=== PATIENT | female | born 1990 | race Caucasian/White ===

== ENCOUNTER 2016-11-05 22:12 | Emergency (ER) | payer MEDICAID ==
[2016-11-05 23:57] VITALS: BP 138/75
== END 2016-11-05 23:57 | disposition home or self-care (01) ==
LOC: ED 22:12
DX: S93.402A Sprain of unspecified ligament of left ankle, initial encounter (principal); W22.8XXA Striking against or struck by other objects, initial encounter; Y93.89 Activity, other specified; Y92.89 Other specified places as the place of occurrence of the external cause; Y99.8 Other external cause status

== ENCOUNTER 2016-11-21 21:44 | Emergency (ER) | payer MEDICAID ==
[2016-11-21 22:35] VITALS: BP 139/87
== END 2016-11-21 22:35 | disposition home or self-care (01) ==
LOC: ED 21:44
DX: J04.0 Acute laryngitis (principal)

== ENCOUNTER 2017-10-26 10:10 | Emergency (ER) | payer MEDICAID ==
[~2017-10-26] VITALS: Ht 170.2 cm; Wt 142.4 kg
[2017-10-26 10:22] VITALS: Ht 170.2 cm; Wt 142.4 kg
[2017-10-26 11:21] LABS: BASOPHIL % 0.3 % (0-2); PLATELET COUNT 239 x10^3mcL (130-400); RED CELL DISTRIBUTION WIDTH 13.6 % (11.5-14.5)
[2017-10-26 11:50] LABS: CALCIUM 8.7 mg/dL (8.5-10.1); CARBON DIOXIDE 23.1 mmol/L (21-32); CHLORIDE SERUM 104 mmol/L (98-107); CREATININE SERUM 0.7 mg/dL (0.6-1.0); GFR1 > 60 mL/min; GLUCOSE SERUM 113 mg/dL (74-106); POTASSIUM SERUM 3.4 mmol/L (3.5-5.1); SODIUM SERUM 138 mmol/L (136-145)
[2017-10-26 11:55] LABS: ALKALINE PHOSPHATASE 59 U/L (46-116); ALT/SGPT 59 U/L (14-59); AST/SGOT 60 U/L (15-37); BILIRUBIN TOTAL 0.79 mg/dL (0.20-1.00); LIPASE 84 IU/L (73-393); TOTAL PROTEIN, SERUM 7.5 g/dL (6.4-8.2)
[2017-10-26 12:17] LABS: ALBUMIN 3.3 g/dL (3.4-5.0)
[2017-10-26 14:45] VITALS: BP 129/85
== END 2017-10-26 14:45 | disposition home or self-care (01) ==
LOC: ED 10:10
PROVIDERS: Emergency Medicine
DX: N20.0 Calculus of kidney (principal); D36.9 Benign neoplasm, unspecified site
CPT/HCPCS: J1885; J2405; J7030

== ENCOUNTER 2018-07-02 15:39 | Emergency (ER) | payer OTHER ==
[~2018-07-02] VITALS: Ht 170.2 cm; Wt 142.4 kg
[2018-07-02 15:52] VITALS: Ht 170.2 cm; Wt 142.4 kg
[2018-07-02 19:24] LABS: BASOPHIL % 0.3 % (0-2); PLATELET COUNT 264 x10^3mcL (130-400); RED CELL DISTRIBUTION WIDTH 13.9 % (11.5-14.5)
[2018-07-02 19:27] LABS: CALCIUM 9.1 mg/dL (8.5-10.1); CARBON DIOXIDE 27.6 mmol/L (21-32); CHLORIDE SERUM 104 mmol/L (98-107); CREATININE SERUM 0.8 mg/dL (0.6-1.0); GFR1 > 60 mL/min; GLUCOSE SERUM 80 mg/dL (74-106); POTASSIUM SERUM 3.6 mmol/L (3.5-5.1); SODIUM SERUM 141 mmol/L (136-145)
[2018-07-02 19:33] LABS: ALBUMIN 3.6 g/dL (3.4-5.0); ALKALINE PHOSPHATASE 63 U/L (46-116); ALT/SGPT 45 U/L (14-59); AST/SGOT 35 U/L (15-37); BILIRUBIN TOTAL 0.6 mg/dL (0.20-1.00); LIPASE 99 IU/L (73-393)
[2018-07-02 20:04] VITALS: BP 130/85
== END 2018-07-02 20:04 | disposition home or self-care (01) ==
LOC: ED 15:39
PROVIDERS: Emergency Medicine
DX: K80.50 Calculus of bile duct without cholangitis or cholecystitis without obstruction (principal)
CPT/HCPCS: 36415; J2405; J7030

== ENCOUNTER 2018-11-09 02:28 | Emergency (ER) | payer OTHER ==
[~2018-11-09] VITALS: Ht 170.2 cm; Wt 138.1 kg
[2018-11-09 02:35] VITALS: Ht 170.2 cm; Wt 138.1 kg
[2018-11-09 03:55] VITALS: BP 131/75
== END 2018-11-09 03:55 | disposition home or self-care (01) ==
LOC: ED 02:28
DX: N39.0 Urinary tract infection, site not specified (principal); G89.29 Other chronic pain; M25.512 Pain in left shoulder; Z87.19 Personal history of other diseases of the digestive system
CPT/HCPCS: J0696; J1885; Q0092

== ENCOUNTER 2019-08-26 14:21 | Emergency (ER) | payer OTHER | END 2019-08-26 15:01 | disposition left against medical advice (07) | LOC: ED 14:21 | DX: Z53.21 Procedure and treatment not carried out due to patient leaving prior to being seen by health care provider (principal) ==